=== PATIENT | male | born 1985 | race African-American/Black ===

== ENCOUNTER 2018-08-11 05:47 | Inpatient (IN) | payer OTHER, MEDICAID ==
[~2018-08-11] VITALS: Ht 177.8 cm; Wt 122.0 kg
[2018-08-11] MEDS ORDERED: AMLODIPINE 10MG TABLET PO ONE (06:45)
[2018-08-11] MEDS ORDERED: ONDANSETRON HCL 4MG/2ML INJ IV STA (07:01)
[2018-08-11 07:06] LABS: BASOPHILS % 0.8 % (0.0-2.0); EOSINOPHILS % 0.5 % (0.0-5.0); HEMATOCRIT. 41.2 % (42.0-52.0); HEMOGLOBIN. 13.8 g/dL (14.0-18.0); LYMPHOCYTES % 22.5 % (20.0-50.0); MEAN CORPUSCULAR HEMOGLOBIN 27.4 pg (28.0-32.0); MEAN CORPUSCULAR VOLUME 81.8 fL (80.0-94.0); MEAN PLATELET VOLUME 9.2 fl (7.4-10.4); MONOCYTES % 6.3 % (2.0-8.0); NEUTROPHILS % 69.9 % (40.0-76.0); PLATELET 201 x1000/uL (130-400); RED BLOOD CELL COUNT 5.04 mill/uL (4.7-6.1); RED CELL DISTRIBUTION WIDTH 13.4 % (11.6-14.6)
[2018-08-11 07:07] LABS: CLARITY URINE CLEAR (CLEAR); COLOR URINE YELLOW (YELLOW); KETONES URINE NEGATIVE (NEGATIVE); LEUKOCYTE ESTERASE URINE NEGATIVE (NEGATIVE); NITRITE URINE NEGATIVE (NEGATIVE); OCCULT BLOOD URINE NEGATIVE (NEGATIVE); PROTEIN URINE 2+ (NEGATIVE); SPECIFIC GRAVITY URINE 1.011 (1.005-1.030); UROBILINOGEN URINE 0.2 E.U./dL (0.2-1.0)
[2018-08-11 07:08] LABS: INR 1.1; PROTHROMBIN TIME 10.9 sec (9.6-11.0)
[2018-08-11 07:09] LABS: CHLORIDE 103 mEq/L (98-107)
[2018-08-11] MEDS ORDERED: HYDRALAZINE 20MG/ML VIAL IV ONE (08:30)
[2018-08-11] MEDS ORDERED: METOCLOPRAMIDE HCL 10MG/2ML VIAL IV ONE (09:15)
[2018-08-11] MEDS ORDERED: SODIUM CHLORIDE 0.9% 1,000 ML IV ONE (10:10)
[2018-08-11] MEDS ORDERED: ZOLPIDEM TARTRATE 5MG TABLET PO PRN (11:45)
[2018-08-11] MEDS ORDERED: KETOROLAC 30MG/ML VIAL IV PRN (11:45)
[2018-08-11] MEDS ORDERED: IPRATROPIUM/ALBUTEROL 0.5-3(2.5)MG/3ML NEB INH PRN (11:45)
[2018-08-11] MEDS ORDERED: DOCUSATE SODIUM 100MG CAPSULE PO PRN (11:45)
[2018-08-11] MEDS ORDERED: LORAZEPAM 0.5MG TABLET PO PRN (11:45)
[2018-08-11] MEDS ORDERED: ONDANSETRON HCL 4MG/2ML INJ IV PRN (11:45)
[2018-08-11] MEDS ORDERED: NITROGLYCERIN 0.4MG TABLET SL SL PRN (11:45)
[2018-08-11] MEDS ORDERED: CLONIDINE 0.1MG TABLET PO PRN (11:45)
[2018-08-11] MEDS ORDERED: GUAIFENESIN 200MG/10ML SUGAR FREE UDC PO PRN (11:45)
[2018-08-11] MEDS ORDERED: MAGNESIUM/ALUMINUM HYDROXIDE/SIMETHICONE 30ML UDC PO PRN (11:45)
[2018-08-11] MEDS ORDERED: AMLODIPINE 10MG TABLET PO SCH (12:01)
[2018-08-11] MEDS: LISINOPRIL 20MG TABLET PO SCH ×2 (12:21→20:26)
[2018-08-11] MEDS: METOPROLOL TARTRATE 25MG TABLET PO SCH ×2 (12:21→20:26)
[2018-08-11 14:00] VITALS: BP_SYST 207; BP_SYST 217; BP_DIAS 100; BP_DIAS 109
[2018-08-11] MEDS ORDERED: POTASSIUM CHLORIDE 20MEQ/PACKET PO SCH (14:20)
[2018-08-11] MEDS: HYDRALAZINE HCL 50MG TABLET PO SCH ×2 (14:27→21:57)
[2018-08-11 16:00] VITALS: BP 197/128
[2018-08-11] MEDS: KETOROLAC 15MG/ML VIAL IV PRN ×2 (16:03→22:15)
[2018-08-11 17:11] LABS: *COCAINE SCREEN URINE NEGATIVE (NEGATIVE)
[2018-08-11 17:12] LABS: CANNABINOID URINE SCREEN PRESUMTIVE POSITIVE (NEGATIVE); METHADONE URINE SCREEN NEGATIVE (NEGATIVE); OPIATES URINE SCREEN NEGATIVE (NEGATIVE); PHENCYCLIDINE URINE SCREEN NEGATIVE (NEGATIVE)
[2018-08-11 17:14] LABS: *AMPHETAMINES SCREEN URINE NEGATIVE (NEGATIVE)
[2018-08-11 17:15] LABS: *BARBITURATES SCREEN URINE NEGATIVE (NEGATIVE); *BENZODIAZEPINES SCREEN URINE NEGATIVE (NEGATIVE)
[2018-08-11] MEDS ORDERED: CLONIDINE HCL 0.3MG/24HR PATCH TD SCH (17:25)
[2018-08-11 18:00] VITALS: BP 190/109
[2018-08-11] MEDS: NITROGLYCERIN 0.4MG/HR PATCH TOP SCH (19:14)
[2018-08-11 20:00] VITALS: BP 184/120
[2018-08-11] MEDS: FAMOTIDINE 20MG TABLET PO SCH (20:25)
[2018-08-11 22:00] VITALS: BP 164/105
[2018-08-12] VITALS (9 sets, daily range): BP systolic 158–228; BP diastolic 93–120
[2018-08-12] MEDS: CLONIDINE 0.2MG TABLET PO PRN ×2 (00:26→11:09)
[2018-08-12] MEDS: HYDRALAZINE HCL 50MG TABLET PO SCH ×2 (06:41→14:36)
[2018-08-12] MEDS: ACETAMINOPHEN 325MG TABLET PO PRN ×2 (06:43→09:44)
[2018-08-12] MEDS ORDERED: AMLODIPINE 10MG TABLET PO SCH (09:00)
[2018-08-12] MEDS: FAMOTIDINE 20MG TABLET PO SCH (09:06)
[2018-08-12] MEDS: METOPROLOL TARTRATE 25MG TABLET PO SCH (09:14)
[2018-08-12] MEDS: LISINOPRIL 20MG TABLET PO SCH (09:15)
[2018-08-12] MEDS ORDERED: MINOXIDIL 2.5MG TABLET PO SCH (10:30)
[2018-08-12] MEDS: NITROGLYCERIN 0.4MG/HR PATCH TOP SCH (11:09)
[2018-08-12] MEDS: KETOROLAC 15MG/ML VIAL IV PRN (11:36)
== END 2018-08-12 17:15 | disposition home or self-care (01) | DRG 199 ==
LOC: ER 05:47 → 5EST 09:20 → EDBEDREQTM 09:24 → EDBEDREQ 09:24 → ENRESERV 09:55
PROVIDERS: ADMIT Internal Medicine; ATTEND Internal Medicine
DX: I16.0 Hypertensive urgency (principal); N17.9 Acute kidney failure, unspecified; E66.01 Morbid (severe) obesity due to excess calories; E87.5 Hyperkalemia; I10 Essential (primary) hypertension; E87.6 Hypokalemia; F12.10 Cannabis abuse, uncomplicated; F17.210 Nicotine dependence, cigarettes, uncomplicated; J45.909 Unspecified asthma, uncomplicated; Z71.3 Dietary counseling and surveillance; Z68.38 Body mass index [BMI] 38.0-38.9, adult
CPT/HCPCS: 36415; 71045; 80061; 80305; 83036; 93970; 96361; 96374; 96375; 99291; J0360; J1885; J2405; J2765; J7030